=== PATIENT | male | born 1950 | race Caucasian/White ===

== ENCOUNTER 2019-01-26 19:54 | Emergency (ER) | payer MEDICARE, MEDICAID ==
[~2019-01-26] VITALS: Ht 167.6 cm; Wt 73.0 kg
--- NOTE | 2019-01-26 20:07 | NUR ---
PT PRESENTED TO THE ER WITH A C/O MOUTH BLEEDING SINCE FRIDAY. PT IS NAMIBIAN SPEAKING ONLY. OTIS TRAN IS AT THE BEDSIDE TRANSLATING NAMIBIAN FOR THE PT AND Olya CHAHAL PA-C. PT IS ON HD 3 DAYS A WEEK (, , FRI). FISTULA IS ON THE LUE. PT STATED THAT IT IS HIS UPPER RT MOLAR IS BLEEDING. PT IS ON THE MONITOR AND COTNINUOUS PULSE OX.
--- NOTE | 2019-01-26 20:07 | NUR ---
PT PRESENTED TO THE ER WITH A C/O MOUTH BLEEDING SINCE FRIDAY. PT IS CZECH SPEAKING ONLY. OTIS TRAN IS AT THE BEDSIDE TRANSLATING CZECH FOR THE PT AND Olya CHAHAL PA-C. PT IS ON HD 3 DAYS A WEEK (M, W,F). FISTULA IS ON THE LUE. PT STATED THAT IT IS HIS UPPER RT MOLAR IS BLEEDING. PT IS ON THE MONITOR AND COTNINUOUS PULSE OX.
--- NOTE | 2019-01-26 20:21 | NUR ---
MARJORIE, [employer] SPECIALIST IS AT THE BEDSIDE FOR BLOOD DRAW.
[2019-01-26 20:27] LABS: BASOPHILS # (AUTO) 0.1 /CMM (0.0-0.2); EOSINOPHILS % (AUTO) 4.1 % (0.0-6.0); HEMATOCRIT 29 % (39-51); HEMOGLOBIN 9.6 g/dL (13.5-17.5); LYMPHOCYTES % (AUTO) 33.6 % (20.0-44.0); MEAN CORPUSCULAR HGB CONC 33 g/dl (31.0-36.0); MEAN CORPUSCULAR VOLUME 92 fL (80-96); MONOCYTES # (AUTO) 0.5 /CMM (0.1-1.30); MONOCYTES % (AUTO) 8.1 % (2.0-12.0); NEUTROPHILS # (AUTO) 3.2 /CMM (1.8-8.9); NEUTROPHILS % (AUTO) 53.2 % (43.0-81.0); PLATELET COUNT (AUTO) 107 /CMM (150-450); RED BLOOD CELL COUNT(AUTO) 3.18 MIL/uL (4.5-6.0); WHITE BLOOD COUNT (AUTO) 6.1 K/uL (4.3-11.0)
[2019-01-26 20:45] LABS: CALCIUM, SERUM 8.5 mg/dL (8.5-10.1); POTASSIUM 4.1 mmol/L (3.5-5.1)
[2019-01-26 20:47] LABS: CREATININE 9.1 mg/dL (0.6-1.3)
[2019-01-26 20:54] LABS: ALBUMIN 3.7 g/dL (3.4-5.0); BILIRUBIN,DIRECT 0.2 mg/dL (0.0-0.2); BILIRUBIN,TOTAL 0.6 mg/dL (0.2-1.0); TOTAL PROTEIN, SERUM 6.8 g/dL (6.4-8.2)
--- NOTE | 2019-01-26 20:57 | NUR ---
PT'S MOUTH IS STILL BLEEDING. GAUZE WAS CHANGED 4 TIMES. GAUZE WAS SATURATED WITH GISELA BLOOD.
--- NOTE | 2019-01-26 21:13 | NUR ---
Olya CHAHAL PA-C IS AT THE BEDSIDE SPEAKING TO THE PT RE: POC
[2019-01-26] MEDS ORDERED: MISCELLANEOUS MED 1 EA EA TP STA (21:21)
--- NOTE | 2019-01-26 21:40 | NUR ---
CALLED [facility] FOR MS BED.
[2019-01-26] MEDS ORDERED: GELATIN SPONGE,ABSORBABLE 1 SPONGE SPONGE TP ONE ×4 (21:42→23:30)
--- NOTE | 2019-01-26 21:48 | NUR ---
MS BED 307-1 GIVEN
[2019-01-26] MEDS ORDERED: LIDOCAINE 0.5%-EPI 1:200,000 50 ML VIAL ONE (21:50)
--- NOTE | 2019-01-26 21:54 | NUR ---
ATTEMPTED TO STOP THE BLEEDING WITH GEL FOAM. ATTEMPT UNSUCCESSFUL. B SAMARIA CHAHAL NOTIFIED. PT'S UPPER RT WISDOM TOOTH IS BLEEDING. NO TOOTH NOTED.
--- NOTE | 2019-01-26 21:57 | NUR ---
LIDO WITH EPI ORDERED VERBALLY. 0.5% LIDO WITH 1:200,000 EPI.
--- NOTE | 2019-01-26 22:05 | NUR ---
PT'S RT UPPER BACK TOOTH'S ROOT IS EXPOSED. BLEEDING NOTED FROM THE TOOTH/ RECEEDING GUM AREA. B SAMARIA CHAHAL IS AT THE BEDSIDE INJECTING GUM WITH LIDO W/EPI.
--- NOTE | 2019-01-26 22:12 | NUR ---
PT'S TOOTH IS STILL BLEEDING. GAUZE CHANGED TWICE. B SAMARIA CHAHAL NOTIFIED.
--- NOTE | 2019-01-26 22:30 | NUR ---
OPENED THE DENTAL BOX AND USED THE HEM CON DRSG. PACKING PLACED IN MOUTH AND PT ASKED TO LIGHTLY BIT DOWN.
--- NOTE | 2019-01-26 22:41 | NUR ---
PT'S UPPER TOOTH IS STILL BLEEDING. PACKING CHANGED X 2. SUCTIONING DONE.
--- NOTE | 2019-01-26 22:50 | NUR ---
USED GEL FOAM AGAIN AND REPACKED WITH GAUZE. PT IS LIGHTLY BITING DOWN.
[2019-01-26 23:02] LABS: BASOPHILS % (AUTO) 0.7 % (0.0-2.0); EOSINOPHILS % (AUTO) 4.2 % (0.0-6.0); HEMATOCRIT 26 % (39-51); HEMOGLOBIN 8.6 g/dL (13.5-17.5); LYMPHOCYTES % (AUTO) 27.7 % (20.0-44.0); MEAN CORPUSCULAR HGB CONC 33 g/dl (31.0-36.0); MEAN CORPUSCULAR VOLUME 92 fL (80-96); MONOCYTES # (AUTO) 0.5 /CMM (0.1-1.30); MONOCYTES % (AUTO) 7.1 % (2.0-12.0); NEUTROPHILS # (AUTO) 4.4 /CMM (1.8-8.9); NEUTROPHILS % (AUTO) 60.3 % (43.0-81.0); PLATELET COUNT (AUTO) 103 /CMM (150-450); RED BLOOD CELL COUNT(AUTO) 2.84 MIL/uL (4.5-6.0); WHITE BLOOD COUNT (AUTO) 7.3 K/uL (4.3-11.0)
--- NOTE | 2019-01-26 23:08 | NUR ---
PT IS STILL BLEEDING FROM THE BACK UPPER TOOTH. WILL TRY COLD WATER SWISH AND SPIT.
--- NOTE | 2019-01-26 23:20 | NUR ---
REPACKED THE PT'S MOUTH. SATURATED DRSG REMOVED.
--- NOTE | 2019-01-26 23:25 | NUR ---
PT'S CHANGED THE PACKING BLOOD WAS DRIPPING OUT OF THE PT'S MOUTH.
[2019-01-26] MEDS ORDERED: LIDOCAINE 0.5%-EPI 1:200,000 50 ML VIAL TP ONE ×2 (23:30)
--- NOTE | 2019-01-26 23:40 | NUR ---
REPACKED THE PT'S MOUTH. OLD PACKING REMOVED AND WAS COMPLETELY SATURATED.
--- NOTE | 2019-01-27 00:05 | NUR ---
SUCTIONED PT'S MOUTH AND CHANGED THE DRSG
--- NOTE | 2019-01-27 00:24 | NUR ---
CHANGED PT'S PACKING. OLD PACKING SATURATED WITH GISELA BLOOD.
--- NOTE | 2019-01-27 00:26 | NUR ---
STARTED FFP. TO RUN OVER 30 MINS. B SAMARIA CHAHAL IS AWARE. VSS
--- NOTE | 2019-01-27 00:30 | NUR ---
CHANGED PT'S PACKING AND REMOVED OLD PACKING. GISELA BLOOD SATURATED PACKING THAT WAS REMOVED.
--- NOTE | 2019-01-27 00:48 | NUR ---
CHANGED PT'S MOUTH PACKING. PACKING THAT WAS REMOVED WAS SATURATED WITH GISELA BLOOD. PT'S VSS. PT IS TOLERATING FFP INFUSION WELL. NO REACTION NOTED.
--- NOTE | 2019-01-27 01:19 | NUR ---
STARTED INFUSING PLATELETS.
--- NOTE | 2019-01-27 01:33 | NUR ---
FINISHED INFUSING PLATELETS. VSS
--- NOTE | 2019-01-27 02:15 | NUR ---
CHANGED PT'S MOUTH PACKING Q 10-15 MINS SINCE 99
--- NOTE | 2019-01-27 02:40 | NUR ---
CHANGED PT'S MOUTH PACKING. OLD PACKING WAS REMOVED AND THE GAUZE WAS SATURATED.
[2019-01-27 02:43] LABS: BASOPHILS % (AUTO) 0.6 % (0.0-2.0); EOSINOPHILS % (AUTO) 2.8 % (0.0-6.0); HEMATOCRIT 23 % (39-51); HEMOGLOBIN 7.6 g/dL (13.5-17.5); LYMPHOCYTES # (AUTO) 1.8 /CMM (0.8-4.8); LYMPHOCYTES % (AUTO) 23.7 % (20.0-44.0); MEAN CORPUSCULAR HGB CONC 33 g/dl (31.0-36.0); MEAN CORPUSCULAR VOLUME 92 fL (80-96); MONOCYTES # (AUTO) 0.5 /CMM (0.1-1.30); NEUTROPHILS # (AUTO) 5.1 /CMM (1.8-8.9); NEUTROPHILS % (AUTO) 65.9 % (43.0-81.0); PLATELET COUNT (AUTO) 132 /CMM (150-450); RED BLOOD CELL COUNT(AUTO) 2.48 MIL/uL (4.5-6.0); WHITE BLOOD COUNT (AUTO) 7.7 K/uL (4.3-11.0)
--- NOTE | 2019-01-27 03:14 | NUR ---
REPORT GIVEN TO OTIS DAVIS FOR [facility].
[2019-01-27 04:52] LABS: BASOPHILS # (AUTO) 0.1 /CMM (0.0-0.2); BASOPHILS % (AUTO) 0.8 % (0.0-2.0); HEMATOCRIT 22 % (39-51); HEMOGLOBIN 7.2 g/dL (13.5-17.5); LYMPHOCYTES # (AUTO) 1.9 /CMM (0.8-4.8); LYMPHOCYTES % (AUTO) 26.4 % (20.0-44.0); MEAN CORPUSCULAR HGB CONC 33 g/dl (31.0-36.0); MEAN CORPUSCULAR VOLUME 92 fL (80-96); MONOCYTES # (AUTO) 0.6 /CMM (0.1-1.30); MONOCYTES % (AUTO) 7.6 % (2.0-12.0); NEUTROPHILS # (AUTO) 4.6 /CMM (1.8-8.9); NEUTROPHILS % (AUTO) 62.2 % (43.0-81.0); PLATELET COUNT (AUTO) 129 /CMM (150-450); RED BLOOD CELL COUNT(AUTO) 2.37 MIL/uL (4.5-6.0); WHITE BLOOD COUNT (AUTO) 7.4 K/uL (4.3-11.0)
[2019-01-27 05:07] VITALS: BP 141/78
--- NOTE | 2019-01-27 06:16 | NUR ---
CALL FROM [place]. PT ACCEPTED TO LOCATED WITHIN [facility] ER BY DR ANDERS. # FOR REPORT [phone]. [place]# [id number]
--- NOTE | 2019-01-27 06:25 | NUR ---
[facility] CALLED FOR TRANSPORT. ETA 30 MIN. TRIP# [id number]
--- NOTE | 2019-01-27 06:57 | NUR ---
[facility] AT BEDSIDE FOR TRANSPORT TO [facility].
--- NOTE | 2019-01-27 07:05 | NUR ---
REPORT GIVEN TO WILL BERG FOR CONTINUATION OF CARE.
== END 2019-01-27 07:06 | disposition short-term general hospital (02) ==
LOC: ER 19:54 → MED 21:50 → UNDOADMIN 21:50 → ER 01-27 07:06
DX: K13.79 Other lesions of oral mucosa (principal); D69.6 Thrombocytopenia, unspecified; D64.9 Anemia, unspecified; I12.0 Hypertensive chronic kidney disease with stage 5 chronic kidney disease or end stage renal disease; E11.22 Type 2 diabetes mellitus with diabetic chronic kidney disease; N18.6 End stage renal disease; Z99.2 Dependence on renal dialysis; Z79.4 Long term (current) use of insulin
CPT/HCPCS: 36415 ×2; 80048; 80076; 85025 ×4; 85730; 86850; 87081; 99285; J3490; P9017; P9034; G0378; P9016-BL

== ENCOUNTER 2019-07-21 09:18 | Outpatient (CLI) | payer MEDICARE, MEDICAID | END 2019-07-21 23:59 | disposition home or self-care (01) | LOC: RAD 09:18 | PROVIDERS: ATTEND Internal Medicine | DX: I51.7 Cardiomegaly (principal); I70.0 Atherosclerosis of aorta; J98.11 Atelectasis; R09.89 Other specified symptoms and signs involving the circulatory and respiratory systems; I10 Essential (primary) hypertension; E11.9 Type 2 diabetes mellitus without complications | CPT/HCPCS: 71046 ==